=== PATIENT | male | born 1995 | race Caucasian/White ===

== ENCOUNTER 2017-03-03 12:58 | Emergency (ER) | payer MEDICAID ==
[~2017-03-03] VITALS: Ht 172.7 cm; Wt 61.4 kg
[2017-03-03 13:01] VITALS: TEMP 97.8
[2017-03-03 14:21] LABS: BASO # 0.1 (0.0-0.2); BASO % 1.2 % (0.0-2.0); EOS # 0.1 (0.0-0.7); EOS % 2.2 % (0-4.0); GRAN # 1.7 (1.4-6.5); GRAN % 41.7 % (42.2-75.2); HEMATOCRIT 42.8 % (36.0-47.0); HEMOGLOBIN 14.8 g/dl (12.5-16.1); LYMPH # 1.9 (1.2-3.4); LYMPH % 45.3 % (20.0-51.0); MEAN CELL VOLUME 87 fl (80.0-95.0); MEAN CORPUSCULAR HEMOGLOBIN 30 pg (26.0-32.0); MEAN CORPUSCULAR HGB CONC 35 g/dl (33.0-37.0); MEAN PLATELET VOLUME 10.5 fl (7.4-10.4); MONO # 0.4 (0.1-0.6); MONO % 9.4 % (1.7-9.3); PLATELET COUNT 205 K/mm3 (130-400); REDCELL DISTRIBUTION WIDTH-CV 12.8 % (11.5-14.5); WHITE BLOOD COUNT 4.1 K/mm3 (4.8-10.8)
[2017-03-03 14:31] LABS: ADJUSTED CALCIUM 8.8 mg/dL (8.4-10.2); ALBUMIN 4.8 gm/dL (3.5-5.0); CALCIUM 9.4 mg/dL (8.4-10.2); CREATININE, serum 0.86 mg/dL (0.66-1.25); POTASSIUM 4.3 mmol/L (3.4-5.0)
[2017-03-03 14:40] VITALS: BP 113/75; PULSE 55
[2017-03-03 15:02] LABS: THYROID STIMULATING HORMONE 0.44 uIU/mL (0.465-4.680)
== END 2017-03-03 16:54 | disposition home or self-care (01) ==
LOC: COL.ER 12:58
PROVIDERS: Nurse Practitioner
DX: R55 Syncope and collapse (principal)

== ENCOUNTER 2019-05-21 22:30 | Emergency (ER) | payer MEDICAID ==
[~2019-05-21] VITALS: Ht 172.7 cm; Wt 63.6 kg
[2019-05-21 22:38] VITALS: TEMP 98.3
[2019-05-21 22:51] LABS: BASO # 0.1 (0.0-0.2); BASO % 0.9 % (0.0-2.0); EOS # 0.1 (0.0-0.7); EOS % 1.9 % (0-4.0); GRAN # 3.6 (1.4-6.5); GRAN % 48.1 % (42.2-75.2); HEMATOCRIT 39.3 % (42.0-52.0); HEMOGLOBIN 13.9 g/dl (13.5-18.0); LYMPH # 2.8 (1.2-3.4); LYMPH % 38.1 % (20.0-51.0); MEAN CELL VOLUME 88 fl (80.0-100.0); MEAN CORPUSCULAR HEMOGLOBIN 31 pg (27.0-31.0); MEAN CORPUSCULAR HGB CONC 35 g/dl (33.0-37.0); MEAN PLATELET VOLUME 10.9 fl (7.4-10.4); MONO # 0.8 (0.1-0.6); MONO % 10.7 % (1.7-9.3); PLATELET COUNT 229 K/mm3 (130-400); RED BLOOD COUNT 4.47 M/mm3 (4.20-5.60); REDCELL DISTRIBUTION WIDTH-CV 12.4 % (11.5-14.5)
[2019-05-21 23:07] LABS: ALANINE AMINOTRANSFERASE 17 U/L (21-72); ALBUMIN 4.7 gm/dL (3.5-5.0); ALKALINE PHOSPHATASE 76 U/L (50-136); ANION GAP 17 mmol/L (7-16); AST,SGOT 31 U/L (15-37); BILIRUBIN,TOTAL 0.8 mg/dL (0.0-1.0); BLOOD UREA NITROGEN 15 mg/dL (9-20); CALCIUM 9.5 mg/dL (8.4-10.2); CARBON DIOXIDE 22 mmol/L (22-30); CHLORIDE 103 mmol/L (98-107); CREATININE, serum 0.93 (0.66-1.25); GLUCOSE 91 mg/dL (74-106); POTASSIUM 3.6 mmol/L (3.4-5.0); SODIUM 142 mmol/L (137-145); TOTAL PROTEIN 8.4 gm/dL (6.4-8.2)
[2019-05-21 23:25] LABS: LIPASE 33 U/L (23-300)
[2019-05-21 23:40] LABS: TROPONIN-I < 0.012 ng/mL (0.000-0.035)
[2019-05-22] MEDS ORDERED: PROTONIX 40MG T40 MG PO (00:23)
[2019-05-22 01:12] VITALS: BP 132/81; PULSE 104
== END 2019-05-22 01:12 | disposition home or self-care (01) ==
LOC: COL.ER 22:30
PROVIDERS: Emergency Medicine
DX: R10.12 Left upper quadrant pain (principal); R00.2 Palpitations; F12.90 Cannabis use, unspecified, uncomplicated
CPT/HCPCS: J2405; J7030

== ENCOUNTER 2019-10-18 14:32 | Emergency (ER) | payer SELFPAY ==
[~2019-10-18] VITALS: Ht 172.7 cm; Wt 59.1 kg
[~2019-10-18 14:32] MED LIST: PROTONIX 40MG T40 MG PO
[2019-10-18 14:37] VITALS: TEMP 98.2
[2019-10-18 16:02] LABS: BASO # 0.1 (0.0-0.2); BASO % 1.4 % (0.0-2.0); EOS % 1.1 % (0-4.0); GRAN # 2.1 (1.4-6.5); GRAN % 58.6 % (42.2-75.2); HEMOGLOBIN 15.1 g/dl (13.5-18.0); LYMPH % 26.2 % (20.0-51.0); MEAN CELL VOLUME 90 fl (80.0-100.0); MEAN CORPUSCULAR HEMOGLOBIN 31 pg (27.0-31.0); MEAN CORPUSCULAR HGB CONC 34 g/dl (33.0-37.0); MEAN PLATELET VOLUME 10.6 fl (7.4-10.4); MONO # 0.5 (0.1-0.6); MONO % 12.4 % (1.7-9.3); PLATELET COUNT 193 K/mm3 (130-400); RED BLOOD COUNT 4.89 M/mm3 (4.20-5.60); REDCELL DISTRIBUTION WIDTH-CV 13.3 % (11.5-14.5)
[2019-10-18 16:15] LABS: ALANINE AMINOTRANSFERASE 23 U/L (21-72); ALBUMIN 4.7 gm/dL (3.5-5.0); ALKALINE PHOSPHATASE 55 U/L (50-136); ANION GAP 16 mmol/L (7-16); AST,SGOT 21 U/L (15-37); BILIRUBIN,TOTAL 1.2 mg/dL (0.0-1.0); BLOOD UREA NITROGEN 14 mg/dL (9-20); CALCIUM 8.9 mg/dL (8.4-10.2); CARBON DIOXIDE 22 mmol/L (22-30); CHLORIDE 104 mmol/L (98-107); CREATINE KINASE 59 U/L (55-170); CREATININE, serum 0.81 (0.66-1.25); GLUCOSE 74 mg/dL (74-106); MAGNESIUM 1.8 mg/dL (1.6-2.3); SODIUM 141 mmol/L (137-145); TOTAL PROTEIN 7.6 gm/dL (6.4-8.2)
[2019-10-18 16:26] LABS: TROPONIN-I < 0.012 ng/mL (0.000-0.035)
[2019-10-18 17:55] VITALS: BP 114/80; PULSE 82
== END 2019-10-18 17:50 | disposition home or self-care (01) ==
LOC: COL.ER 14:32
PROVIDERS: Emergency Medicine
DX: R00.2 Palpitations (principal); K21.9 Gastro-esophageal reflux disease without esophagitis; F41.9 Anxiety disorder, unspecified
CPT/HCPCS: J2060; J7030

== ENCOUNTER 2022-08-18 00:14 | Emergency (ER) | payer OTHER, MEDICAID ==
[~2022-08-18] VITALS: Ht 172.7 cm; Wt 65.9 kg
[2022-08-18 00:17] VITALS: TEMP 98.2
[2022-08-18 01:46] LABS: BASO # 0.1 K/mm3 (0.0-0.2); BASO % 1.5 % (0.0-2.0); EOS # 0.2 K/mm3 (0.0-0.7); EOS % 2.2 % (0.0-4.0); GRAN # 2.1 K/mm3 (1.4-6.5); GRAN % 30.4 % (42.2-75.2); HEMATOCRIT 41.8 % (42.0-52.0); HEMOGLOBIN 14.6 g/dl (13.5-18.0); LYMPH # 3.7 K/mm3 (1.2-3.4); LYMPH % 54.8 % (20.0-51.0); MEAN CELL VOLUME 94 fl (80.0-100.0); MEAN CORPUSCULAR HEMOGLOBIN 33 pg (27-31); MEAN CORPUSCULAR HGB CONC 35 g/dl (33.0-37.0); MEAN PLATELET VOLUME 9.8 fl (7.4-10.4); MONO # 0.7 K/mm3 (0.1-0.6); MONO % 10.4 % (1.7-9.3); PLATELET COUNT 279 K/mm3 (130-400); RED BLOOD COUNT 4.47 M/mm3 (4.20-5.60); REDCELL DISTRIBUTION WIDTH-CV 14.6 % (11.5-14.5)
[2022-08-18 02:04] LABS: ALANINE AMINOTRANSFERASE 25 U/L (0-55); ALBUMIN 4.5 gm/dL (3.5-5.0); ALCOHOL(ethanol),MEDICAL 246 mg/dL (0-10); ALKALINE PHOSPHATASE 69 U/L (40-150); ANION GAP 20 mmol/L (7-16); AST,SGOT 26 U/L (5-34); BILIRUBIN,TOTAL 0.4 mg/dL (0.2-1.2); BLOOD UREA NITROGEN 12 mg/dL (9-21); CALCIUM 8.6 mg/dL (8.4-10.2); CHLORIDE 109 mmol/L (98-107); CREATININE, serum 1.07 mg/dL (0.72-1.25); GLUCOSE 109 mg/dL (70-99); POTASSIUM 3.7 mmol/L (3.5-4.5); SODIUM 141 mmol/L (136-145); TOTAL PROTEIN 8.4 gm/dL (6.2-8.1)
[2022-08-18 02:05] LABS: ACETAMINOPHEN < 1.0 ug/mL (10-30); CARBON DIOXIDE 12 mmol/L (22-29); SALICYLATE < 5.0 mg/dL (15.0-30.0)
[2022-08-18 08:14] LABS: CALCIUM 8.3 mg/dL (8.4-10.2); CREATININE, serum 0.91 mg/dL (0.72-1.25); POTASSIUM 3.7 mmol/L (3.5-4.5)
[2022-08-18 08:35] VITALS: BP 97/67
[2022-08-18 10:15] LABS: COLLECTION METHOD CLEAN CATCH
[2022-08-18 10:33] LABS: TRICYCLIC ANTIDEPRESS URINE NEGATIVE
[2022-08-18 10:43] LABS: MUCOUS Present (NOT PRESENT); SQUAMOUS EPITHELIAL 0-2 /hpf (0-10); URINE BACTERIA None Seen /hpf (NONE SEEN)
[2022-08-18 10:46] LABS: URINE APPEARANCE Clear (CLEAR/HAZY); URINE COLOR Yellow (YELLOW)
[2022-08-18 10:47] LABS: PH 5.5 (5.0-8.5); URINE BLOOD Negative (NEGATIVE); URINE GLUCOSE Negative (NEGATIVE); URINE KETONE Negative (NEGATIVE); URINE NITRATE Negative (NEGATIVE); URINE PROTEIN(semi-quant) Negative (NEGATIVE); URINE UROBILINOGEN 0.2 E.U/dL (0.2-1.0)
[2022-08-18 18:07] VITALS: PULSE 78
== END 2022-08-18 18:07 | disposition home or self-care (01) ==
LOC: COL.ER 00:14
PROVIDERS: Emergency Medicine; Nurse Practitioner Primary Care
DX: R45.851 Suicidal ideations (principal); F10.129 Alcohol abuse with intoxication, unspecified; R00.0 Tachycardia, unspecified; E87.20 Acidosis, unspecified; Z28.310 Unvaccinated for COVID-19
CPT/HCPCS: J1200; J1630; J2060

== ENCOUNTER 2023-11-05 15:58 | Emergency (ER) | payer MEDICAID ==
[~2023-11-05] VITALS: Ht 172.7 cm; Wt 68.2 kg
[2023-11-05 16:11] VITALS: TEMP 97.9
[2023-11-05 17:39] VITALS: BP 121/74; PULSE 85
== END 2023-11-05 17:46 | disposition home or self-care (01) ==
LOC: COL.ER 15:58
DX: S61.250A Open bite of right index finger without damage to nail, initial encounter (principal); Z23 Encounter for immunization; W55.81XA Bitten by other mammals, initial encounter